=== PATIENT | male | born 1985 | race Caucasian/White ===

== ENCOUNTER 2016-11-26 11:22 | Emergency (ER) | payer SELFPAY ==
--- NOTE | 2016-11-26 11:35 | ED Physician Documentation ---
General Adult - HISTORIAN Historian: patient - HPI Chief Complaint: Nausea,Vomiting,Diarrhea Timing: still present Severity: moderate Modifying Factors: none Further Comments: yes (Patient states that he has been having some nausea for about six weeks. Has started to have some vomiting associated with it. He has been started on Boronda about 3 weeks. States that his symptoms have become worse since that time. Was started for bipolar disorder. Patient states that he has been not able to keep any thing down for the last three days. Has been dry heaving. Has been urinating less , concentrating and is orderous. Mild dysuria. Has some dairrhea yesterday. Has been running a fever and having some chills. Blood in emisis. Has had some dark blood in stool with wiping. Last BM yesterday. Denies any tick bites. States that it is 400 miles to home and he can not make it feeling this way.) - ROS CONST: fever (not sure how high. ) CVS/RESP: chest pain (epigastric anterior chest area) MS/SKIN/LYMPH: rash (ant chest). denies: joint pain NEURO/PSYCH: denies: headache - PAST HX Past History: none, other (seizure with head injury) Surgeries/Procedures: other (reconstructive surgry on face, cranial bore hole) Allergies/Adverse Reactions: Allergies Allergy/AdvReac Type Severity Reaction Status Date / Time No Known Allergies Allergy Verified 11/26/16 12:16 Home Medications: Ambulatory Orders Medication Instructions Recorded Buspirone HCl [BUSPAR] 10 mg PO BID 11/26/16 Citalopram Hydrobromide 20 mg PO DAILY 11/26/16 [Citalopram HBr] Boronda Carbonate [Boronda 300 mg PO TID 11/26/16 Carbonate ER] Trazodone HCl [Desyrel] 100 mg PO HS 11/26/16 - SOCIAL HX Smoking History: greater than 1 pack/day (1 1/2 ppd to 2 ppd) Alcohol Use: occasionally (beer and vodka once a week.) Drug Use: none - FAMILY HX Family History: No - REVIEWED ASSESSMENTS Nursing Assessment Reviewed: Yes Vitals Reviewed: Yes Progress - Results/Orders Results/Orders: 12:30 Patient has not had any further emisis but states that he still feels nauseated. Remain tachycardic in the 110-120s. 13:00 still somewhat nauseasted but better, no vomiting noted. 14:12 No significant change 15:15 No change, no nausea or vomiting. 16:04 Patient feeling better but is fustrated that I can not tell him what exactly is wrong and he wants to be transferred [facility]. Arrangements being made 16:52 Abimael advised to be transferred by amublance, but is concerned about his bike and refuses ambulance transfer. Advised of risks and benifits. - EKG/XRAY/CT Comments: sinus tachycardia ED Results Lab/Radiology - Radiology Radiology Impressions: CT abdomen and pelvis with contrast CLINICAL HISTORY: Nausea and vomiting. Elevated white cell count. Contrast administered: 80 mL of Omnipaque. TECHNIQUE: CT of the abdomen and pelvis is performed with intravenous infusion of contrast. Sagittal and coronal reconstructions are performed by the technologist. FINDINGS: Visualized lung bases are clear. The liver and spleen demonstrate normal attenuation without focal defect. Gallbladder is normally distended. There is no pancreatic or adrenal abnormality. The kidneys demonstrate symmetric enhancement. There is no retroperitoneal mass or significant adenopathy. The appendix is visualized and is within normal limits. There is increased stool throughout the colon. Bladder is unremarkable. There is no free fluid in the pelvis or abdomen. IMPRESSION: Increased stool in the colon. Negative appendix. Chest -two views CLINICAL HISTORY: Mediastinal chest pain. Left arm numbness and tingling. FINDINGS: Examination of the chest in PA and lateral views with no prior film for comparison demonstrates the lungs to be clear. Cardiovascular and mediastinal silhouettes are within normal limits. Bony thorax is intact. IMPRESSION: No active disease. Abdomen -one view CLINICAL HISTORY: Nausea and vomiting. FINDINGS: Examination of the abdomen in single AP view demonstrates gas and stool in the colon and gas in some nondistended small bowel loops. Properitoneal fat lines are preserved. Psoas margins are fairly well visualized. There are no unusual intra-abdominal calcifications. Bony structures are intact. IMPRESSION: Negative abdomen. General Adult Physical Exam - PHYSICAL EXAM GENERAL APPEARANCE: mild distress NECK: normal inspection, thyroid normal, supple. No: lymphadenopathy RESPIRATORY: no resp distress, chest non-tender, breath sounds normal. No: wheezes, rales, rhonchi CVS: heart sounds normal, no murmur, no gallop, tachycardia (130s) ABDOMEN: soft, no organomegaly, no distension, tenderness (mild diffuse tenderness in all four quadrants) BACK: normal inspection, CVA tenderness (R) (mild), CVA tenderness (L) (mild) SKIN: warm/dry, normal color, other (macular papular rash to the anterior chest area. ) EXTREMITIES: no edema NEURO: oriented X3, CN's nml as tested, mood/affect nml, cognition normal Discharge Clincal Impression: Nausea & vomiting Referrals: Primary Doctor,No [Primary Care Provider] - 2 Days Home Medications: Ambulatory Orders Buspirone HCl [BUSPAR] 10 mg PO BID 11/26/16 Citalopram Hydrobromide [Citalopram HBr] 20 mg PO DAILY 11/26/16 Boronda Carbonate [Boronda Carbonate ER] 300 mg PO TID 11/26/16 Trazodone HCl [Desyrel] 100 mg PO HS 11/26/16 Condition: Stable Disposition: 02 XFER [facility] HOSP Decision to Admit: [id number] Date of Decison to Admit: 11/26/16 Decision Time: 16:43
[2016-11-26] MEDS ORDERED: 0.9 % SODIUM CHLORIDE 1,000 ML IV ONE ×2 (11:40→13:53)
[2016-11-26] MEDS ORDERED: ONDANSETRON HCL/PF 4 MG/ 2ML VIAL ONE (11:45)
[2016-11-26] MEDS ORDERED: ONDANSETRON HCL/PF 4 MG/ 2ML VIAL IVP ONE (11:45)
[2016-11-26 11:58] LABS: BASOPHILS % 0.5 (0.0-1.5); EOSINOPHILS % 0.3 % (0.0-6.8); MEAN CORPUSCULAR HEMOGLOBIN 32.2 pg (28.0-34.0); MEAN CORPUSCULAR VOLUME 91.6 fl (80.0-100.0); NEUTROPHILS # 13.1 # k/uL (1.4-7.7)
[2016-11-26] MEDS ORDERED: 0.9 % SODIUM CHLORIDE 1,000 ML IV SCH ×2 (12:00→14:00)
[2016-11-26 12:05] LABS: eGFR (African) > 60; eGFR (Non-African) > 60
[2016-11-26 12:25] LABS: APPEARANCE,URINE Clear (CLEAR); COLOR,URINE Yellow (YELLOW); OCCULT BLOOD,URINE Trace-intact (NEGATIVE); UROBILINOGEN URINE 0.2 Eu (0.2-1.0)
[2016-11-26] MEDS ORDERED: PROMETHAZINE HCL 25 MG in 0.9 % SODIUM CHLORIDE 50 ML IV ONE (13:52)
[2016-11-26] MEDS ORDERED: PROMETHAZINE HCL 25 MG/ML VIAL ONE (13:53)
[2016-11-26] MEDS ORDERED: 0.9 % SODIUM CHLORIDE 50 ML IV ONE (13:53)
[2016-11-26 15:46] LABS: AMPHETAMINE NON NEGATIVE ng/mL (<1000); BARBITURATES NEGATIVE ng/mL (<300); CANNABINOIDS NEGATIVE ng/mL (< 50); COCAINE NEGATIVE ng/mL (<150); METHAMPHETAMINE NON NEGATIVE ng/mL (<1000); METHYLENEDIOXYMETHAMPHETAMINE NEGATIVE ng/mL (<500); MORPHINE NEGATIVE ng/mL (<300)
--- NOTE | 2016-11-26 15:46 | Diagnostic Imaging Report ---
JARVIS JURADO [facility] [address] [facility].[address] [address] Report Submission Date: Nov 26, 2016 12:36:04 PM CDT Patient Study Name: MARIA DEL ROSARIO WORKMAN Date: Nov 26, 2016 12:13:11 PM CDT Modality Type: CR Gender: M Description: ABDOMEN : 87 Institution: [facility] Physician: JARVIS JURADO Abdomen -one view CLINICAL HISTORY: Nausea and vomiting. FINDINGS: Examination of the abdomen in single AP view demonstrates gas and stool in the colon and gas in some nondistended small bowel loops. Properitoneal fat lines are preserved. Psoas margins are fairly well visualized. There are no unusual intra-abdominal calcifications. Bony structures are intact. IMPRESSION: Negative abdomen. Electronically signed on Nov 26, 2016 12:36:04 PM CDT by: Olvin WOODWARD
--- NOTE | 2016-11-26 15:47 | Diagnostic Imaging Report ---
JARVIS JURADO [facility] [address] [facility].[address] [address] Report Submission Date: Nov 26, 2016 12:37:12 PM CDT Patient Study Name: MARIA DEL ROSARIO WORKMAN Date: Nov 26, 2016 12:19:47 PM CDT Modality Type: CR Gender: M Description: CHEST : 87 Institution: [facility] Physician: JARVIS JURADO Chest -two views CLINICAL HISTORY: Mediastinal chest pain. Left arm numbness and tingling. FINDINGS: Examination of the chest in PA and lateral views with no prior film for comparison demonstrates the lungs to be clear. Cardiovascular and mediastinal silhouettes are within normal limits. Bony thorax is intact. IMPRESSION: No active disease. Electronically signed on Nov 26, 2016 12:37:12 PM CDT by: Olvin WOODWARD
--- NOTE | 2016-11-26 15:48 | Diagnostic Imaging Report ---
JARVIS JURADO [facility] [address] [facility] [address] [address] Report Submission Date: Nov 26, 2016 1:53:37 PM CDT Patient Study Name: MARIA DEL ROSARIO WORKMAN Date: Nov 26, 2016 1:20:43 PM CDT Modality Type: CT\SR Gender: M Description: CT ABD & PELVIS W/ CON : 87 Institution: [facility] Physician: JARVIS JURADO CT abdomen and pelvis with contrast CLINICAL HISTORY: Nausea and vomiting. Elevated white cell count. Contrast administered: 80 mL of Omnipaque. TECHNIQUE: CT of the abdomen and pelvis is performed with intravenous infusion of contrast. Sagittal and coronal reconstructions are performed by the technologist. FINDINGS: Visualized lung bases are clear. The liver and spleen demonstrate normal attenuation without focal defect. Gallbladder is normally distended. There is no pancreatic or adrenal abnormality. The kidneys demonstrate symmetric enhancement. There is no retroperitoneal mass or significant adenopathy. The appendix is visualized and is within normal limits. There is increased stool throughout the colon. Bladder is unremarkable. There is no free fluid in the pelvis or abdomen. IMPRESSION: Increased stool in the colon. Negative appendix. Electronically signed on Nov 26, 2016 1:53:37 PM CDT by: Olvin WOODWARD
[2016-11-26 16:57] VITALS: BP 147/98
== END 2016-11-26 16:56 | disposition short-term general hospital (02) ==
LOC: ED 11:22
DX: R11.2 Nausea with vomiting, unspecified (principal)
CPT/HCPCS: 71020; 74000; 74177; 80053; 80377; 81002; 82150; 82272; 85025; 93005; J2405; J2550; J7030; Q9966; 96361; 96374; 96375; 99284; G0481; S1016